=== PATIENT | female | born 1955 | race Asian ===

== ENCOUNTER 2016-09-22 07:52 | Day surgery (SDC) | payer BC ==
[~2016-09-22] VITALS: Ht 165.1 cm; Wt 85.9 kg
[~2016-09-22 07:52] MED LIST: AMLO10TA2 PO; ASPI-621 PO; CARV3.1212 PO; CLOP75TA PO; DOCU-30 PO; FURO20TA3 PO; HYDR-3307 PO; LISI-170 PO; LISI2.5T PO; METO25TA35 PO; METO25TA91 PO; OXYC5CAP4 PO; POTA20TA14 PO; RIVA20TA PO; WARF2.5T PO-COUM
[2016-09-22 08:12] VITALS: BP 151/91
[2016-09-22 08:45] LABS: HEMOGLOBIN 13.1 g/dL (11.7-16.4)
[2016-09-22] MEDS ORDERED: METO25TA2 PO (08:47)
[2016-09-22] MEDS ORDERED: LEVO25TA4 PO (08:48)
[2016-09-22] MEDS ORDERED: WARF2.5T73 PO (08:49)
[2016-09-22] MEDS ORDERED: POTA20TA6 PO (08:51)
[2016-09-22] MEDS ORDERED: FURO40TA6 PO (08:51)
[2016-09-22] MEDS ORDERED: AMLO10TA4 PO (08:52)
[2016-09-22] MEDS ORDERED: SODIUM CHLORIDE FLUSH 10ML SYR IVF SCH (09:00)
[2016-09-22] MEDS ORDERED: PROPOFOL 10 MG/ML, 20ML ONE (10:24)
[2016-09-22 10:30] LABS: BLOOD UREA NITROGEN 32 mg/dL (7-18)
== END 2016-09-22 10:44 | disposition home or self-care (01) ==
LOC: CACL 07:52
PROVIDERS: ATTEND Internal Medicine Cardiovascular Disease
DX: I48.91 Unspecified atrial fibrillation (principal); I10 Essential (primary) hypertension; I34.0 Nonrheumatic mitral (valve) insufficiency; E78.5 Hyperlipidemia, unspecified; E03.9 Hypothyroidism, unspecified; I25.10 Atherosclerotic heart disease of native coronary artery without angina pectoris; Z95.5 Presence of coronary angioplasty implant and graft
CPT/HCPCS: 36415; 80048; 85025; 85610; 92960; J2704

== ENCOUNTER → 2016-10-12 | Outpatient (CLI) | payer BC ==
[~2016-10-12] MED LIST changes: +AMLO10TA4 PO; +FURO40TA6 PO; +LEVO25TA4 PO; +METO25TA2 PO; +OMNIPAQUE 350 MG/ML, 150 ML BOTTLE ONE; +POTA20TA6 PO; +WARF2.5T73 PO
== END | disposition home or self-care (01) ==
LOC: CFH 08:13
PROVIDERS: ATTEND Urology
DX: K57.30 Diverticulosis of large intestine without perforation or abscess without bleeding (principal); K76.0 Fatty (change of) liver, not elsewhere classified; Z95.2 Presence of prosthetic heart valve
CPT/HCPCS: 74178; Q9967

== ENCOUNTER → 2017-05-12 | Outpatient (CLI) | payer BC ==
[~2017-05-12] MED LIST changes: +DOCU-131 PO; -DOCU-30 PO; -OMNIPAQUE 350 MG/ML, 150 ML BOTTLE ONE; +OXYC5CAP2 PO; -OXYC5CAP4 PO
== END | disposition home or self-care (01) ==
LOC: CFH 14:42
PROVIDERS: ATTEND Family Medicine
DX: Z12.31 Encounter for screening mammogram for malignant neoplasm of breast (principal)
CPT/HCPCS: G0202

== ENCOUNTER 2017-10-24 06:19 | Inpatient (IN) | payer MEDICAID, OTHER ==
[2017-10-21 09:20] VITALS: BP 153/104
[2017-10-21 09:45] LABS: BASOPHILS # (AUTO) 0.05 x10^3/uL (0-0.1); BASOPHILS % (AUTO) 1 % (0-1); EOSINOPHILS % (AUTO) 2 % (1-7); LYMPHOCYTES # (AUTO) 2.41 x10^3/uL (1-3.4); LYMPHOCYTES % (AUTO) 38 % (22-44); MD NO; MEAN CORPUSCULAR HEMOGLOBIN 28.9 pg (27.0-34.8); MEAN CORPUSCULAR HGB CONC 33.4 g/dL (32.4-35.8); MEAN CORPUSCULAR VOLUME 86.7 fL (80-100); MEAN PLATELET VOLUME 9.1 fL (7.4-10.4); MONOCYTES # (AUTO) 0.51 x10^3/uL (0.2-0.8); MONOCYTES % (AUTO) 8 % (2-9); NEUTROPHILS # (AUTO) 3.23 x10^3/uL (1.8-6.8); NEUTROPHILS % (AUTO) 51 % (42-75); PLATELET COUNT 198 x10^3/uL (130-400); RED BLOOD COUNT 5.51 x10^6/uL (3.82-5.3); RED CELL DISTRIBUTION WIDTH 14.2 % (9.6-15.2)
[2017-10-21 09:53] LABS: ANION GAP 8 mmol/L (5-15); CALCIUM 9.2 mg/dL (8.5-10.1); CHLORIDE 109 mmol/L (98-107); CREATININE 1.04 mg/dL (0.55-1.02)
[~2017-10-24] VITALS: Ht 165.1 cm; Wt 92.0 kg
[~2017-10-24 06:19] MED LIST changes: +ASPI-496 PO
[2017-10-24] MEDS ORDERED: SODIUM CHLORIDE 0.9% 1,000 ML IV SCH ×2 (06:30)
[2017-10-24] MEDS ORDERED: ZOLPIDEM 5MG TABLET PO PRN ×2 (06:30→12:00)
[2017-10-24] MEDS ORDERED: ACETAMINOPHEN 325 MG TABLET PO PRN ×3 (06:30→13:00)
[2017-10-24] MEDS ORDERED: ONDANSETRON 2MG/ML, 2ML IVPush PRN ×2 (06:30→13:00)
[2017-10-24] MEDS ORDERED: CHOL500050 PO (06:43)
[2017-10-24] MEDS ORDERED: ATOR10TA9 PO (06:43)
[2017-10-24] MEDS ORDERED: FENO160T PO (06:43)
[2017-10-24] MEDS ORDERED: PIOG15TA3 PO (06:43)
[2017-10-24] MEDS ORDERED: LOSA25TA5 PO (06:43)
[2017-10-24] MEDS ORDERED: MIDAZOLAM 1 MG/ML, 2ML ONE (07:33)
[2017-10-24] MEDS ORDERED: FENTANYL PF 250 MCG/5ML ONE (07:33)
[2017-10-24] MEDS ORDERED: HEPARIN 1,000 UNITS/ML, 10ML ONE (07:40)
[2017-10-24] MEDS ORDERED: PROTAMINE SULFATE 10 MG/ML, 5ML ONE (07:40)
[2017-10-24] MEDS ORDERED: LIDOCAINE 2%, 10ML ONE ×2 (07:40→15:13)
[2017-10-24] MEDS ORDERED: ISOPROTERENOL 0.2MG/ML, 5ML ONE (07:43)
[2017-10-24] MEDS ORDERED: DEXAMETHASONE 4 MG/ML, 1ML ONE (08:11)
[2017-10-24] MEDS ORDERED: SUCCINYLCHOLINE 20 MG/ML, 10ML ONE (08:11)
[2017-10-24] MEDS ORDERED: ONDANSETRON 2MG/ML, 2ML ONE (08:11)
[2017-10-24] MEDS ORDERED: PROPOFOL 10 MG/ML, 20ML ONE (08:11)
[2017-10-24] MEDS ORDERED: FENTANYL PF 100 MCG/2ML ONE ×2 (11:43→15:44)
[2017-10-24] MEDS ORDERED: ERGOCALCIFEROL 50,000 UNIT CAPSULE PO SCH (12:00)
[2017-10-24] MEDS ORDERED: HEPARIN wt. based STROKE protocol MC PRN (12:30)
[2017-10-24] MEDS ORDERED: MIDAZOLAM 1 MG/ML, 2ML IV PRN (13:00)
[2017-10-24] MEDS ORDERED: FENTANYL PF 100 MCG/2ML IV PRN (13:00)
[2017-10-24] MEDS ORDERED: OXYcodone 5 MG/5 ML ORAL.SOL UDC PO PRN (13:00)
[2017-10-24] MEDS ORDERED: EPHEDRINE 50 MG/ML, 1ML IVPush PRN (13:00)
[2017-10-24] MEDS ORDERED: LORazepam 2 MG/ML, 1ML IVPush PRN (13:00)
[2017-10-24] MEDS ORDERED: morphine SULFATE 10 MG/ML, 1ML IV PRN (13:00)
[2017-10-24] MEDS ORDERED: PROMETHAZINE 25 MG/ML, 1ML IV PRN (13:00)
[2017-10-24] MEDS ORDERED: PROMETHAZINE 12.5 MG SUPP PR PRN (13:00)
[2017-10-24] MEDS ORDERED: EPHEDRINE 50 MG/ML, 1ML ONE (13:49)
[2017-10-24] MEDS ORDERED: GLYCOPYRROLATE 0.4 MG/2 ML, 2ML ONE (13:49)
[2017-10-24] MEDS ORDERED: GLYCOPYRROLATE 0.2MG/1ML, 5ML IVPush ONE (14:00)
[2017-10-24] MEDS ORDERED: CEFAZOLIN 1,000 MG ONE (15:12)
[2017-10-24] MEDS ORDERED: CEFAZOLIN PMX 1GM/50ML 50 ML ONE (15:12)
[2017-10-24] MEDS ORDERED: OXYcodone 5 MG/5 ML ORAL.SOL UDC ONE (17:04)
[2017-10-24] MEDS ORDERED: ACETAMINOPHEN 650 MG/20.3 ML UDC ONE (17:04)
[2017-10-24 18:43] VITALS: BP 108/62
[2017-10-24] MEDS: SOTALOL 80MG TABLET PO SCH (18:43)
[2017-10-24 18:59] VITALS: BP 122/71
[2017-10-24] MEDS ORDERED: ONDANSETRON ODT 4 MG PO PRN (20:00)
[2017-10-24] MEDS: ATORVASTATIN 10 MG TABLET PO SCH (20:05)
[2017-10-25 00:50] VITALS: BP 116/73
[2017-10-25] MEDS: SOTALOL 80MG TABLET PO SCH ×2 (05:54→17:38)
[2017-10-25 07:26] VITALS: BP 122/83
[2017-10-25] MEDS ORDERED: LEVOTHYROXINE 75 MCG TABLET PO SCH (09:00)
[2017-10-25] MEDS: PIOGLITAZONE 15 MG TABLET PO SCH (09:01)
[2017-10-25] MEDS: FENOFIBRATE 145 MG TABLET PO SCH (09:01)
[2017-10-25] MEDS: LOSARTAN 25MG TABLET PO SCH (09:01)
[2017-10-25] MEDS: METOPROLOL SUCCINATE 25 MG TAB.ER.24H PO SCH (09:01)
[2017-10-25] MEDS: APIXABAN 5 MG TABLET PO SCH ×2 (09:01→19:50)
[2017-10-25 13:03] VITALS: BP 106/69
[2017-10-25 18:47] VITALS: BP 118/75
[2017-10-25] MEDS: ATORVASTATIN 10 MG TABLET PO SCH (19:50)
[2017-10-26 01:51] VITALS: BP 117/78
[2017-10-26] MEDS: SOTALOL 80MG TABLET PO SCH ×2 (06:16→18:22)
[2017-10-26 07:06] VITALS: BP 119/76
[2017-10-26] MEDS: METOPROLOL SUCCINATE 25 MG TAB.ER.24H PO SCH (09:57)
[2017-10-26] MEDS: PIOGLITAZONE 15 MG TABLET PO SCH (09:57)
[2017-10-26] MEDS: FENOFIBRATE 145 MG TABLET PO SCH (09:57)
[2017-10-26] MEDS: LOSARTAN 25MG TABLET PO SCH (09:58)
[2017-10-26] MEDS: APIXABAN 5 MG TABLET PO SCH ×2 (09:58→19:52)
[2017-10-26] MEDS: LEVOTHYROXINE 75 MCG TABLET PO SCH (09:58)
[2017-10-26 13:42] VITALS: BP 106/72
[2017-10-26 18:42] VITALS: BP 133/86
[2017-10-26] MEDS: ATORVASTATIN 10 MG TABLET PO SCH (19:52)
[2017-10-27 00:42] VITALS: BP 142/86
[2017-10-27] MEDS: SOTALOL 80MG TABLET PO SCH ×2 (05:43→16:33)
[2017-10-27] MEDS: LEVOTHYROXINE 75 MCG TABLET PO SCH (05:43)
[2017-10-27] MEDS: APIXABAN 5 MG TABLET PO SCH (08:22)
[2017-10-27] MEDS: METOPROLOL SUCCINATE 25 MG TAB.ER.24H PO SCH (08:22)
[2017-10-27] MEDS: PIOGLITAZONE 15 MG TABLET PO SCH (08:22)
[2017-10-27] MEDS: FENOFIBRATE 145 MG TABLET PO SCH (08:22)
[2017-10-27] MEDS: LOSARTAN 25MG TABLET PO SCH (08:23)
[2017-10-27 08:27] VITALS: BP 157/92
[2017-10-27 08:36] VITALS: BP 139/88
[2017-10-27] MEDS ORDERED: APIX5TAB PO (09:23)
[2017-10-27] MEDS ORDERED: SOTA80TA18 PO (09:23)
[2017-10-27] MEDS ORDERED: CEPH-368 PO (13:16)
[2017-10-27 13:47] VITALS: BP 143/84
[2017-10-27] MEDS: CEPHALEXIN 500 MG CAPSULE PO SCH ×2 (13:54→16:32)
== END 2017-10-27 18:03 | disposition home or self-care (01) | DRG 243 ==
LOC: CACL 06:19 → ORIP 11:58 → OBSVTOIN 16:38 → 5SO 18:35
PROVIDERS: ADMIT Internal Medicine Cardiovascular Disease; ATTEND Internal Medicine Cardiovascular Disease
PROC: 02K83ZZ Map Conduction Mechanism, Percutaneous Approach (ICD-10-PCS; 2017-10-24)
PROC: 02583ZZ Destruction of Conduction Mechanism, Percutaneous Approach (ICD-10-PCS; principal; 2017-10-24 08:00)
PROC: 0JH606Z Insertion of Pacemaker, Dual Chamber into Chest Subcutaneous Tissue and Fascia, Open Approach (ICD-10-PCS; 2017-10-25)
PROC: 02H63JZ Insertion of Pacemaker Lead into Right Atrium, Percutaneous Approach (ICD-10-PCS; 2017-10-25)
PROC: 4A0234Z Measurement of Cardiac Electrical Activity, Percutaneous Approach (ICD-10-PCS; 2017-10-25)
PROC: 4A023FZ Measurement of Cardiac Rhythm, Percutaneous Approach (ICD-10-PCS; 2017-10-25)
PROC: 02HK3JZ Insertion of Pacemaker Lead into Right Ventricle, Percutaneous Approach (ICD-10-PCS; 2017-10-25)
PROC: B246ZZ4 Ultrasonography of Right and Left Heart, Transesophageal (ICD-10-PCS; 2017-10-25)
DX: I48.92 Unspecified atrial flutter (principal); D68.69 Other thrombophilia; Z95.2 Presence of prosthetic heart valve; E03.9 Hypothyroidism, unspecified; E66.9 Obesity, unspecified; Z68.33 Body mass index [BMI] 33.0-33.9, adult; E78.5 Hyperlipidemia, unspecified; I10 Essential (primary) hypertension; Z87.891 Personal history of nicotine dependence; E11.9 Type 2 diabetes mellitus without complications
CPT/HCPCS: 33208; 36415; 71045; 71046; 80048; 85025; 85347; 85520; 93005; 93306; 93312; 93325; 93462; 93613; 93621; 93653; 93662; C1731; C1732; C1766; C1779; C1785; C1892; C1893; C1894; G0378; J0690; J1100; J1644; J2250; J2405; J2704; J2720; J3010; J3490; C1730; C1759; C2630; J0330

== ENCOUNTER 2018-03-24 08:45 | Day surgery (SDC) | payer MEDICARE, OTHER ==
[~2018-03-24] VITALS: Ht 165.1 cm; Wt 100.0 kg
[~2018-03-24 08:45] MED LIST changes: -AMLO10TA2 PO; +AMLO10TA6 PO; +APIX5TAB PO; +ATOR10TA9 PO; +CEPH-368 PO; +CHOL500050 PO; +FENO160T PO; +LOSA25TA6 PO; +PIOG15TA66 PO; +SOTA80TA18 PO
[2018-03-24 09:38] VITALS: BP 140/99
[2018-03-24] MEDS ORDERED: SOTALOL 80MG TABLET PO ONE (10:00)
[2018-03-24] MEDS ORDERED: APIXABAN 5 MG TABLET PO ONE (10:00)
[2018-03-24] MEDS ORDERED: LOSA25TA6 PO (10:10)
[2018-03-24 10:59] LABS: BASOPHILS # (AUTO) 0.05 x10^3/uL (0-0.1); BASOPHILS % (AUTO) 1 % (0-1); EOSINOPHILS # (AUTO) 0.08 x10^3/uL (0-0.4); EOSINOPHILS % (AUTO) 1 % (1-7); LYMPHOCYTES # (AUTO) 2.21 x10^3/uL (1-3.4); LYMPHOCYTES % (AUTO) 35 % (22-44); MD NO; MEAN CORPUSCULAR HEMOGLOBIN 29.9 pg (27.0-34.8); MEAN CORPUSCULAR HGB CONC 33.6 g/dL (32.4-35.8); MEAN PLATELET VOLUME 9.5 fL (7.4-10.4); MONOCYTES # (AUTO) 0.49 x10^3/uL (0.2-0.8); MONOCYTES % (AUTO) 8 % (2-9); NEUTROPHILS # (AUTO) 3.41 x10^3/uL (1.8-6.8); NEUTROPHILS % (AUTO) 55 % (42-75); PLATELET COUNT 161 x10^3/uL (130-400); RED BLOOD COUNT 5.55 x10^6/uL (3.82-5.3); RED CELL DISTRIBUTION WIDTH 14.6 % (9.6-15.2)
[2018-03-24 11:08] LABS: ANION GAP 9 mmol/L (5-15); CALCIUM 9.3 mg/dL (8.5-10.1); CHLORIDE 110 mmol/L (98-107); CREATININE 1.03 mg/dL (0.55-1.02)
[2018-03-24] MEDS ORDERED: PROPOFOL 10 MG/ML, 20ML ONE (11:08)
== END 2018-03-24 13:07 | disposition home or self-care (01) ==
LOC: CACL 08:45
PROVIDERS: ATTEND Internal Medicine Cardiovascular Disease
DX: I48.91 Unspecified atrial fibrillation (principal); I10 Essential (primary) hypertension; I25.119 Atherosclerotic heart disease of native coronary artery with unspecified angina pectoris; E78.5 Hyperlipidemia, unspecified; E03.9 Hypothyroidism, unspecified; I48.92 Unspecified atrial flutter; Z98.61 Coronary angioplasty status; Z95.2 Presence of prosthetic heart valve
CPT/HCPCS: 36415; 80048; 85025; 92960; 93005; J2704

== ENCOUNTER → 2018-09-05 | Outpatient (CLI) | payer MEDICARE ==
[~2018-09-05] MED LIST changes: -AMLO10TA6 PO; +AMLO10TA8 PO; -ASPI-621 PO; +ASPI81TA45 PO; +LOSA25TA25 PO; -LOSA25TA6 PO; +OMNIPAQUE 350 MG/ML, 150 ML BOTTLE ONE; +WARF2.5T32 PO; -WARF2.5T73 PO
== END | disposition home or self-care (01) ==
LOC: CFH 11:31
PROVIDERS: ATTEND Physician Assistant Surgical
DX: K57.30 Diverticulosis of large intestine without perforation or abscess without bleeding (principal); I51.7 Cardiomegaly; Z95.0 Presence of cardiac pacemaker
CPT/HCPCS: 74178; Q9967

== ENCOUNTER → 2019-01-01 | Outpatient (CLI) | payer MEDICARE ==
[~2019-01-01] MED LIST changes: +AMIO200T42 PO; +AMLO-150 PO; +CA C1TAB59 PO; +CHOL5000 PO; +CYAN1TAB29 PO; +METF500T17 PO; +MONT10TA6 PO; -OMNIPAQUE 350 MG/ML, 150 ML BOTTLE ONE
== END | disposition home or self-care (01) ==
LOC: CFH 15:06
PROVIDERS: ATTEND Physician Assistant Medical
DX: I35.8 Other nonrheumatic aortic valve disorders (principal); I25.9 Chronic ischemic heart disease, unspecified
CPT/HCPCS: 93306

== ENCOUNTER 2020-10-03 09:44 | Emergency (ER) | payer MEDICARE ==
[~2020-10-03] VITALS: Ht 160 cm; Wt 96.9 kg
[~2020-10-03 09:44] MED LIST changes: +AMLO-211 PO; -AMLO10TA8 PO; +HYDR-3248 PO; -HYDR-3307 PO; -LISI2.5T PO; +LISI2.5T12 PO; +POTA-143 PO; -POTA20TA6 PO; -WARF2.5T PO-COUM; +WARF2.5T2 PO-COUM
--- NOTE | 2020-10-03 10:01 | NUR ---
PT. IS A & O X 4 WITH A GCS OF 15. PT. WAS SENT FROM URGENT CARE FOR C/O EPISTAXIS. PT. IS CURRENTLY WITHOUT A BLOODY NOSE. PT. DENIES C/O PAIN. S1 S2 NOTED WITH A MURMUR NOTED. CAP REFILL IS BRISK, LESS THAN 2 SECONDS. SKIN IS PINK, WARM AND DRY. PT.'S LUNGS ARE CTA THROUGHOUT. PT.'S NECK IS MIDLINE WITHOUT JVD NOTED. ABD. IS SOFT AND NON-TENDER WITH BS + X 4 QUADS. PT. IS AMBULATORY TO THE CHAIR AND WAITING TO BE SEEN. CALL LIGHT IS IN PLACE.
--- NOTE | 2020-10-03 10:38 | NUR ---
CARE FOR DC ONLY PROVIDED. NO NOSE BLEEDING NOTED. NO IV TO DC. REVIEWED DC INSTRUCTIONS WITH PT. UNDERSTANDING VERBALZIED. PT LEFT AMB, GAIT STEADY.
== END 2020-10-03 10:41 | disposition home or self-care (01) ==
LOC: ED 10:30
DX: R04.0 Epistaxis (principal)
CPT/HCPCS: 99281

== ENCOUNTER → 2020-12-02 | Outpatient (CLI) | payer MEDICARE ==
[~2020-12-02] MED LIST changes: +LISI2.5T PO; -LISI2.5T12 PO; -POTA-143 PO; +POTA20TA6 PO
== END | disposition home or self-care (01) ==
LOC: CVU 13:11
PROVIDERS: ATTEND Internal Medicine Cardiovascular Disease
DX: I08.2 Rheumatic disorders of both aortic and tricuspid valves (principal); M79.89 Other specified soft tissue disorders; Z95.2 Presence of prosthetic heart valve
CPT/HCPCS: 93306; 93970